=== PATIENT | male | born 1950 | race Caucasian/White ===

== ENCOUNTER 2019-07-05 05:48 | Day surgery (SDC) | payer MEDICARE ==
[~2019-07-05] VITALS: Ht 177.8 cm; Wt 94.0 kg
[~2019-07-05 05:48] MED LIST: CHOL500016 PO; MIRA50TA PO; NAPR-514 PO; OMEP40CA45 PO; TAMS0.4C97 PO
[2019-07-05] MEDS ORDERED: PROCHLORPERAZINE 10 MG/2 ML VIAL. IV PRN (07:00)
[2019-07-05] MEDS ORDERED: MORPHINE SULFATE 2 MG/ML VIAL. IV PRN (07:00)
[2019-07-05] MEDS ORDERED: IV RINGERS,LACTATED 1000ML 1,000 ML IV SCH (07:00)
[2019-07-05] MEDS ORDERED: LIDOCAINE 1% PF 2 ML VIAL. ID PRN (07:00)
[2019-07-05] MEDS ORDERED: ceFAZolin 2GM PREMIX 2 GM/50 ML BAG IV ONE (07:00)
[2019-07-05] MEDS ORDERED: HYDROmorphone 2 MG/ML VIAL IV PRN (07:00)
[2019-07-05] MEDS ORDERED: ONDANSETRON PF 4 MG/2 ML VIAL. IV PRN (07:00)
[2019-07-05] MEDS ORDERED: fentaNYL PF VIAL 100 MCG/2 ML VIAL IV PRN ×2 (07:00)
[2019-07-05] MEDS ORDERED: fentaNYL PF VIAL 100 MCG/2 ML VIAL ONE (07:11)
[2019-07-05] MEDS ORDERED: ONDANSETRON PF 4 MG/2 ML VIAL. ONE (07:11)
[2019-07-05] MEDS ORDERED: FAMOTIDINE 20 MG/2 ML VIAL ONE (07:11)
[2019-07-05] MEDS ORDERED: PROPOFOL 20 ML IV ONE (07:11)
[2019-07-05] MEDS ORDERED: DEXAMETHASONE SOD PHOS 4 MG/ML VIAL ONE (07:11)
[2019-07-05] MEDS ORDERED: MIDAZOLAM HCL/PF 2 MG/2 ML VIAL. ONE (07:11)
[2019-07-05] MEDS ORDERED: LIDOCAINE 2% PF 5 ML VIAL. ONE (07:11)
[2019-07-05] MEDS ORDERED: LIDOCAINE 1% 20 ML VIAL. ONE (07:17)
[2019-07-05] MEDS ORDERED: BUPIVACAINE MPF 0.5% 30 ML VIAL. ONE (07:17)
--- NOTE | 2019-07-05 07:31 | DISCH ---
DISCHARGE INSTRUCTIONS Condition on Discharge Condition on Discharge: Stable Activity After Discharge Activity Instructions for Disc: Other, see below Other activity instructions: ok to use RUE as re Bathing Instructions: Shower-keep dressing dry Lifting Instructions after Dis: No heavy lifting Weight Bearing Status after Di: As tolerated Diet after Discharge Diet after Discharge: Regular Wound Incision Care Wound/Incision Care: Ice to area for comfort, Keep wound/cast CDI, Keep wound elevated, Change dressing Other wound/incision instructi: ok to change dressing Contacting the DRKaty after DC Call your doctor for: Concerns you may have Follow-Up Follow up with: Eran in 2 wks Treatment/Equipment after DC Adaptive Equipment Issued: None EMILY AMBROSIO II, MD Jul 05, 2019 07:31
[2019-07-05] MEDS ORDERED: ePHEDrine PF IN SALINE 50 MG/10 ML SYRINGE. IV ONE (07:38)
[2019-07-05] MEDS ORDERED: SEVOFLURANE 61 TO 120 MINUTES. IH ONE (08:27)
[2019-07-05] MEDS ORDERED: PROCHLORPERAZINE 10 MG/2 ML VIAL. ONE (08:45)
[2019-07-05] MEDS ORDERED: HYDROcodone/APAP 5/325MG 1 TAB TABLET PO ONE (09:00)
[2019-07-05] MEDS ORDERED: HYDR-3164 PO (09:02)
[2019-07-05 09:05] VITALS: BP 110/60
--- NOTE | 2019-07-05 09:14 | PDOC4 ---
Operative Note Operative Note Date of procedure: 07/05/2019 Surgeon: Nagi Canales.: Martín German, advanced practice registered nurse who was necessary to assist with manipulation of the arm, retraction, patient positioning, throughout the procedure. Preoperative diagnosis #1 right cubital tunnel syndrome #2 right carpal tunnel syndrome Postoperative diagnosis: #1 right cubital tunnel syndrome #2 right carpal tunnel syndrome Procedures performed: #1 open right cubital tunnel release #2 open right carpal tunnel release Anesthesia: Gen. Blood loss: 25 mL Tourniquet time: Less than 60 minutes Complications: None Reason for procedure: Patient is a very pleasant 68-year-old gentleman who has had long-standing paresthesias in bilateral upper extremities, right greater than left, who presented to my outpatient orthopedic surgery clinic and we dis cussed his clinical exam, history, failure conservative therapies and the EMG findings. We discussed the risks, benefits, alternatives to surgery and he wished to proceed. Description of procedure: Patient was greeted in the preoperative area by myself for the correct extremity was verified and marked. He was taken back to the operative suite and started on his antibiotics as he was brought back. Once in the operating room, he was transferred gently supine to the operative room table and secured to the bed with all pressure points padded. He then underwent successful induction of a general anesthetic. We applied a nonsterile tourniquet to his right upper extremity and taped in place. Right upper extremity was then prepped and draped in our usual sterile fashion we conducted our standard preoperative timeout. After this, I palpated and marked surface anatomy and luis a line for my cubital tunnel incision. I then exsanguinated the extremity with an Esmarch and insufflated tourniquet to 250 mmHg. After this, I directed my attention to his carpal tunnel portion of the procedure. I incised skin with a scalpel and dissected subcutaneous tissue with a hemostat. I placed myself retaining retractor, used bipolar cautery to cauterize a couple bleeders, and incised his palmar fascia in line with the skin incision. I then replaced my self-retaining retractor and identified his transverse carpal ligament and release this with a scalpel. I then placed a Ragnell retractor and the distal portion the incision, used a tenotomy scissors to spread above and below small remaining portion of the transverse carpal ligament and release this as well. I then repeated this maneuver and an ulnar directed fashion to release the distal antebrachial fascia at the proximal portion of his carpal tunnel incision. I then used the tip of the tenotomies to palpate along the course of the median nerve and encountered no areas that had not been released. This area was then irrigated out and I closed skin with 3-0 nylon in mattress fashion. I then inf iltrated the daryl-incisional soft tissues with local anesthetic and applied a soft bulky sterile dressing. We then directed our attention to the cubital tunnel portion of the surgery. I incised skin around his medial epicondyle, slightly posterior to this. Skin was incised with a scalpel and then I used tenotomies and bipolar cautery to dissect subcutaneous tissue. Identified his r meghna of his cubital tunnel and open this. I then released the roof of his cubital tunnel and continue my release up to the arcade of [place]. I then directed my attention to the distal portion of the release and continued continued releasing the roof of his cubital tunnel into the aponeurosis of the 2 heads of his FCU. After this, I took his elbow through range of motion and noted no ulnar nerve subluxation. We then let tourniquet down I cauterized some bleeders in the subcutaneous tissue with bipolar cautery. After this, I closed subcutaneous tissue with inverted interrupted 2-0 Vicryl followed by running 4-0 Monocryl in a subcuticular fashion. Prior to wound closure, all counts were correct 2 at both sites. I then injected local anesthetic mixture around his. Incisional elbow incision. This area was cleansed and dried and a soft sterile bulky dressing was applied followed by cast padding and an Joselo wrap. He tolerated surgery well. No complications. At the conclusion, he was awakened and transferred supine to the recovery room cart and taken to PACU stable and extubated condition. Postoperative plan is to discharge him home, wound care was given verbal and written form to he and his family. I will see him back here in 2 weeks, sooner should a problem arise NAGI AMBROSIO II, MD Jul 05, 2019 09:14
== END 2019-07-05 09:47 | disposition home or self-care (01) ==
LOC: SURG 05:48
PROVIDERS: ATTEND Orthopaedic Surgery Sports Medicine
DX: G56.01 Carpal tunnel syndrome, right upper limb (principal); G56.21 Lesion of ulnar nerve, right upper limb; K21.9 Gastro-esophageal reflux disease without esophagitis; N40.0 Benign prostatic hyperplasia without lower urinary tract symptoms; E66.3 Overweight; Z68.29 Body mass index [BMI] 29.0-29.9, adult; Z98.52 Vasectomy status; Z72.89 Other problems related to lifestyle; Z98.890 Other specified postprocedural states
CPT/HCPCS: 64718; 64721; A7015; J0171; J0696; J0780; J1100; J2001; J2250; J2405; J2704; J3010; J3490; J7120

== ENCOUNTER 2019-07-19 06:07 | Day surgery (SDC) | payer MEDICARE ==
[~2019-07-19] VITALS: Ht 177.8 cm; Wt 92.0 kg
[~2019-07-19 06:07] MED LIST changes: +HYDR-3164 PO
[2019-07-19] MEDS ORDERED: HYDROmorphone 2 MG/ML VIAL IV PRN (07:00)
[2019-07-19] MEDS ORDERED: LIDOCAINE 1% PF 2 ML VIAL. ID PRN (07:00)
[2019-07-19] MEDS ORDERED: fentaNYL PF VIAL 100 MCG/2 ML VIAL IV PRN ×2 (07:00)
[2019-07-19] MEDS ORDERED: MORPHINE SULFATE 2 MG/ML VIAL. IV PRN (07:00)
[2019-07-19] MEDS ORDERED: PROCHLORPERAZINE 10 MG/2 ML VIAL. IV PRN (07:00)
[2019-07-19] MEDS ORDERED: IV RINGERS,LACTATED 1000ML 1,000 ML IV SCH (07:00)
[2019-07-19] MEDS ORDERED: ONDANSETRON PF 4 MG/2 ML VIAL. IV PRN (07:00)
[2019-07-19] MEDS ORDERED: BUPIVACAINE MPF 0.5% 30 ML VIAL. ONE (07:10)
[2019-07-19] MEDS ORDERED: LIDOCAINE 1% 20 ML VIAL. ONE (07:10)
[2019-07-19] MEDS ORDERED: FAMOTIDINE 20 MG/2 ML VIAL ONE (07:18)
[2019-07-19] MEDS ORDERED: DEXAMETHASONE SOD PHOS 4 MG/ML VIAL ONE (07:18)
[2019-07-19] MEDS ORDERED: ONDANSETRON PF 4 MG/2 ML VIAL. ONE (07:18)
[2019-07-19] MEDS ORDERED: MIDAZOLAM HCL/PF 2 MG/2 ML VIAL. ONE (07:18)
[2019-07-19] MEDS ORDERED: KETAMINE HCL IN NACL, ISO-OSM 50 MG/5 ML SYRINGE ONE (07:18)
[2019-07-19] MEDS ORDERED: fentaNYL PF VIAL 100 MCG/2 ML VIAL ONE (07:18)
[2019-07-19] MEDS ORDERED: LIDOCAINE 2% PF 5 ML VIAL. ONE (07:18)
[2019-07-19] MEDS ORDERED: PROPOFOL 20 ML IV ONE (07:18)
--- NOTE | 2019-07-19 07:30 | DISCH ---
DISCHARGE INSTRUCTIONS Condition on Discharge Condition on Discharge: Stable Activity After Discharge Activity Instructions for Disc: Other, see below Other activity instructions: AROM at fingers, wrist, elbow Bathing Instructions: Shower-keep dressing dry Lifting Instructions after Dis: No heavy lifting Weight Bearing Status after Di: As tolerated Diet after Discharge Diet after Discharge: Regular Wound Incision Care Wound/Incision Care: Ice to area for comfort, Keep wound/cast CDI, Keep wound elevated, Change dressing Contacting the DR. after DC Call your doctor for: Concerns you may have Follow-Up Follow up with: Eran in 2 wks Treatment/Equipment after DC Adaptive Equipment Issued: None EMILY AMBROSIO II, MD Jul 19, 2019 07:30
[2019-07-19] MEDS ORDERED: ePHEDrine PF IN SALINE 50 MG/10 ML SYRINGE. IV ONE (07:35)
[2019-07-19] MEDS ORDERED: ceFAZolin 2GM PREMIX 2 GM/50 ML BAG IV ONE (08:00)
[2019-07-19] MEDS ORDERED: SEVOFLURANE 31 TO 60 MINUTES. IH ONE (08:06)
[2019-07-19] MEDS ORDERED: KETOROLAC 30 MG/ML VIAL. ONE (08:13)
--- NOTE | 2019-07-19 08:32 | PDOC4 ---
Operative Note Operative Note Date of procedure: 07/19/2019 Surgeon: Nagi Ambrosio Asst.: Martín German, advanced practice registered nurse. Jimi Mai, certified paralegal who was necessary to assist with manipulation of the arm, retraction, patient positioning, throughout the procedure. Preoperative diagnosis #1 left cubital tunnel syndrome #2 left carpal tunnel syndrome Postoperative diagnosis: #1 left cubital tunnel syndrome #2 left carpal tunnel syndrome Procedures performed: #1 open left cubital tunnel release #2 open left carpal tunnel release Anesthesia: Gen. Blood loss: 10 mL Tourniquet time: 21 minutes Complications: None Reason for procedure: Patient is a very pleasant 68-year-old gentleman who has had long-standing paresthesias in bilateral upper extremities, right greater than left, who presented to my outpatient orthopedic surgery clinic and we discussed his clinical exam, history, failure conservative therapies and the EMG findings. We discussed the risks, benefits, alternatives to surgery and he wished to proceed. He felt he had recovered well enough from surgery on his left side and wished to proceed with the right side today. Description of procedure: Patient was greeted in the preoperative area by myself for the correct extremity was verified and marked. He was taken back to the operative suite and started on his antibiotics as he was brought back. Once in the operating room, he was transferred gently supine to the operative room table and secured to the bed with all pressure points padded. He then underwent successful induction of a general anesthetic. His sutures from his open right carpal tunnel release were removed. We applied a nonsterile tourniquet to his left upper extremity and taped in place. Left upper extremity was then prepped and draped in our usual sterile fashion we conducted our standard preoperative timeout. After this, I palpated and marked surface anatomy and luis a line for my cubital tunnel incision. I then exsanguinated the extremity with an Esmarch and insufflated tourniquet to 250 mmHg. After this, I directed my attention to his carpal tunnel portion of the procedure. I incised skin with a scalpel and dissected subcutaneous tissue with a hemostat. I placed myself retaining retractor, used bipolar cautery to cauterize a couple bleeders, and incised his palmar fascia in line with the skin incision. I then repositioned my self- retaining retractor and identified his transverse carpal ligament and released this with a scalpel. I then placed a Ragnell retractor and the distal portion the incision, used a tenotomy scissors to spread above and below small remaining portion of the transverse carpal ligament and released this as well. I then repeated this maneuver and an ulnar directed fashion to release the distal antebrachial fascia at the proximal portion of his carpal tunnel incision. I then used the tip of the tenotomies to palpate along the course of the median nerve and encountered no areas that had not been released. This area was then irrigated out and I closed skin with 3-0 nylon in mattress fashion. I then infiltrated the daryl-incisional soft tissues with local anesthetic and applied a soft bulky sterile dressing. We then directed our attention to the cubital tunnel portion of the surgery. I incised skin around his medial epicondyle, slightly posterior to this. Skin was incised with a scalpel and then I used tenotomies and bipolar cautery to dissect subcutaneous tissue. The roof of his cubital tunnel was identified and I entered this with tenotomy scissors and identified the ulnar nerve. I did note that he had slightly more fibrotic tissue on his left side than I remember encountering on his right side. I then released the roof of his cubital tunnel and continue my release up to the arcade of [place]. I then directed my attention to the distal portion of the release and continued continued releasing the roof of his cubital tunnel into the aponeurosis of the 2 heads of his FCU. After this, I took his elbow through range of motion and noted no ulnar nerve subluxation. We then let tourniquet down and I cauterized some bleeders in the subcutaneous tissue with bipolar cautery. After this, I closed subcutaneous tissue with inverted interrupted 2-0 Vicryl followed by running 4-0 Monocryl in a subcuticular fashion. Prior to wound closure, all counts were correct 2 at both sites. I then injected local a nesthetic mixture around his. Incisional elbow incision. This area was cleansed and dried and a soft sterile bulky dressing was applied followed by cast padding and an Joselo wrap. He tolerated surgery well. No complications. At the conclusion, he was awakened and transferred supine to the recovery room cart and taken to PACU stable and extubated condition. Postoperative plan is to discharge him home, wound care was again discussed with he and his family given and written form. I will see him back in clinic in 2 weeks, sooner should a problem arise. NAGI AMBROSIO II, MD Jul 19, 2019 08:32
[2019-07-19] MEDS ORDERED: HYDROcodone/APAP 5/325MG 1 TAB TABLET PO ONE (09:15)
[2019-07-19 09:45] VITALS: BP 160/83
== END 2019-07-19 09:55 | disposition home or self-care (01) ==
LOC: SURG 06:07
PROVIDERS: ATTEND Orthopaedic Surgery Sports Medicine
DX: G56.02 Carpal tunnel syndrome, left upper limb (principal); G56.22 Lesion of ulnar nerve, left upper limb; N40.0 Benign prostatic hyperplasia without lower urinary tract symptoms; K21.9 Gastro-esophageal reflux disease without esophagitis; Z98.52 Vasectomy status; Z98.890 Other specified postprocedural states; Z72.89 Other problems related to lifestyle
CPT/HCPCS: 64718; 64721; A7015; J0171; J0696; J1100; J1885; J2001; J2250; J2405; J2704; J3010; J3490; J7120